=== PATIENT | male | born 1960 | race Hispanic/Latino ===

== ENCOUNTER 2018-11-06 10:09 | Emergency (ER) | payer OTHER ==
--- OUTSIDE RECORDS SUMMARY | 2018-11-06 10:13 | XMS REPORT ---
:1960 Author Organization eClinicalWorks Care Team Providers Name Role Phone Tae [facility] Provider Role Unavailable Allergies No Known Allergies Problems Problem Type Condition Code Onset Dates Condition Status Problem Hyperlipidemia, unspecified E78.5 Active hyperlipidemia type Assessment Hyperlipidemia, unspecified E78.5 Active hyperlipidemia type Problem Seasonal allergies J30.2 Active Assessment Seasonal allergies J30.2 Active Medications No Known Medications Results No Known Results Summary Purpose eClinicalWorks Submission
--- OUTSIDE RECORDS SUMMARY | 2018-11-06 10:13 | XMS REPORT ---
:1960 Author Organization eClinicalWorks Care Team Providers Name Role Phone Tae [facility] Provider Role Unavailable Allergies, Adverse Reactions, Alerts Substance Reaction Event Type N.K.D.A. Info Not Available Non Drug Allergy Problems Problem Type Condition Code Onset Dates Condition Status Assessment Weak urine stream R39.12 Active Assessment Need for Tdap vaccination Z23 Active Assessment Encounter for preventative adult Z00.00 Active health care examination Medications No Known Medications Results No Known Results Immunizations Vaccine Administration Date TDAP > 7 Years-Adacel December 04, 2017 Summary Purpose eClinicalWorks Submission
[2018-11-06 11:15] LABS: Absolute Lymphocytes (CBC) 0.7 K/uL (0.7-4.9); Absolute Neutrophil 5.4 K/uL (1.8-8.0); Basophils % 0.5 % (0-1.3); Eosinophils % 0.2 % (0-4.4); Hematocrit 54.6 % (39.6-49.0); Lymphocytes % 9.5 % (15.3-44.8); MPV 9.3 fL (7.6-11.3); Monocytes % 13.8 % (3.3-12.3); RBC Red Blood Cell Count 5.63 M/uL (4.33-5.43)
[2018-11-06] MEDS ORDERED: KETOROLAC 30 MG/ML INJ ONE (11:15)
[2018-11-06] MEDS ORDERED: DEXAMETHASONE 10 MG/ML VIAL ONE (11:15)
[2018-11-06 11:24] LABS: Potassium 4.3 mmol/L (3.5-5.1)
--- NOTE | 2018-11-06 12:10 | RAD REPORT ---
EXAM DESCRIPTION: CT - Soft Tissue Neck W/Contr CLINICAL HISTORY: submental swelling Pain and swelling. COMPARISON: No comparisons TECHNIQUE All CT scans are performed using dose optimization technique as appropriate and may includ e automated exposure control or mA/KV adjustment according to patient size. FINDINGS: Irregular rim enhancing fluid collection is seen in the submental space measuring 26 x 15 mm (T x AP). Surrounding fat is reticulated and several enlarged submental lymph nodes are present, l argest on the left measuring 8 mm. Findings are most compatible with submental abscess. A large peria pical abscess is present involving the left second mandibular molar with evidence of mild edematous c hange along the lingual surface of left mandible extending along the floor of the mouth. No laryngeal or pharyngeal mass suspected. Thyroid gland is normal in size. The upper lung perez are clear. IMPRESSION: Irregular submental abscess is suspected (26 x 15 mm). This may be odontogenic in origin given the large periapical abscess left mandibular second molar.
[2018-11-06] MEDS ORDERED: CLINDAMYCIN 900MG/D5W 900 MG/50 ML IVPB IV ONE (12:33)
--- NOTE | 2018-11-06 12:59 | ER ---
Nurse's Notes [facility] Name: Bo hO Age: 58 yrs Sex: Male : 1960 Arrival Date: 11/06/2018 Time: 10:11 Bed 7 Private MD: Kurtis Strong Diagnosis: Cutaneous abscess of neck;Periapical abscess with sinus Presentation: 11/06 10:15 Presenting complaint: Patient states: Swelling under his chin for the past week that aj1 has gotten worse over the past 2 days. He was seen at Dr. Strong's office today and was sent to the ER for evaluation. Reports trouble swallowing because of the swelling and pain. Denies fever. Transition of care: patient was not received from another setting of care. Onset of symptoms was October 2018. Risk Assessment: Do you want to hurt yourself or someone else? Patient reports no desire to harm self or others. Initial Sepsis Screen: Does the patient meet any 2 criteria? No. Patient's initial sepsis screen is negative. Does the patient have a suspected source of infection? No. Patient's initial sepsis screen is negative. Care prior to arrival: None. 10:15 Method Of Arrival: Ambulatory aj1 10:15 Acuity: JANELLE 3 aj1 Triage Assessment: 10:17 General: Appears in no apparent distress. comfortable, Behavior is calm, cooperative, aj1 appropriate for age. Pain: Complains of pain in submental area Pain currently is 3 out of 10 on a pain scale. Neuro: Level of Consciousness is awake, alert, obeys commands, Oriented to person, place, time, situation. Cardiovascular: Patient's skin is warm and dry. Respiratory: Airway is patent Respiratory effort is even, unlabored, Respiratory pattern is regular, symmetrical, Denies shortness of breath. Historical: - Allergies: 10:17 No Known Allergies; aj1 - Home Meds: 10:17 None [Active]; aj1 - PMHx: 10:17 None; aj1 - PSHx: 10:17 Hernia repair; aj1 - Immunization history:: Flu vaccine is not up to date. - Social history:: Smoking status: Patient/guardian denies using tobacco. - Ebola Screening: : Patient denies travel to an Ebola-affected area in the 21 days before illness onset. Screenin:50 Abuse screen: Denies threats or abuse. Denies injuries from another. Nutritional sv screening: No deficits noted. Tuberculosis screening: No symptoms or risk factors identified. Fall Risk None identified. Assessment: 10:55 General: Appears in no apparent distress. uncomfortable, slender, well groomed, well sv developed, Behavior is calm, cooperative, appropriate for age. Pain: Complains of pain in submental area Pain currently is 5 out of 10 on a pain scale. Neuro: Level of Consciousness is awake, alert, obeys commands, Oriented to person, place, time, situation, Moves all extremities. Full function Gait is steady. Respiratory: Airway is patent Respiratory effort is even, unlabored, Respiratory pattern is regular, symmetrical. EENT: Reports difficulty swallowing has been eating soft foods for about a week d/t to the swelling. Derm: Skin is pink, warm \T\ dry. Musculoskeletal: Range of motion: intact in all extremities. 13:18 Reassessment: Patient appears in no apparent distress at this time. Patient and/or sv family updated on plan of care and expected duration. Pain level reassessed. Patient is alert, oriented x 3, equal unlabored respirations, skin warm/dry/pink. Patient states symptoms have improved. 13:19 Reassessment: Report called to Cherri at [facility]. sv 13:50 Reassessment: Patient appears in no apparent distress at this time. Patient and/or sv family updated on plan of care and expected duration. Pain level reassessed. Patient is alert, oriented x 3, equal unlabored respirations, skin warm/dry/pink. Vital Signs: 10:17 BP 141 / 86; Pulse 79; Resp 18; Temp 98.6(O); Pulse Ox 99% on R/A; Weight 65.32 kg (R); aj1 Height 5 ft. 6 in. (167.64 cm) (R); 11:23 BP 141 / 82; Pulse 81; Resp 18; Pulse Ox 97% ; sv 13:18 BP 122 / 79; Pulse 85; Resp 16; Pulse Ox 98% ; sv 10:17 Body Mass Index 23.24 (65.32 kg, 167.64 cm) aj1 ED Course: 10:11 Patient arrived in ED. as 10:11 Kurtis Strong, is Private Physician. as 10:17 Triage completed. aj1 10:17 Arm band placed on. aj1 10:23 [facility] jr8 10:23 Sanchez Sotomayor MD is Attending Physician. jr8 10:24 Naty Lozoya, NANCIE is Primary Nurse. sv 10:50 Patient has correct armband on for positive identification. Placed in gown. Bed in low sv position. Call light in reach. Adult w/ patient. Pulse ox on. NIBP on. Door closed. Head of bed elevated. 10:55 Initial lab(s) drawn, by me, sent to lab. Inserted saline lock: 20 gauge in right sv antecubital area, using aseptic technique. Blood collected. Flushed right antecubital with 5 ml normal saline. 11:52 CT Soft Tissue Neck W/contr In Process Unspecified. EDMS 13:09 \T\1233 transfer initiated by Atul with Yuliana at the [facility]/ eb \T\1252 Dr. Saldaña the emergency room physician fermentation scientist for [facility] connected with Yousuf Alvarado for patient transfer consultation/ \T\1255 administrative approval given by Yuliana Kim from the [facility] transfer center/ patient has been accepted by to go to the ER at [facility]/ report to be called to [phone]. 13:50 No provider procedures requiring assistance completed. Patient transferred, IV remains sv in place. intact. Administered Medications: 11:07 Drug: Decadron - Dexamethasone 10 mg Route: IVP; Site: right antecubital; hb 11:23 Follow up: Response: No adverse reaction sv 11:08 Drug: TORadol - Ketorolac 15 mg Route: IVP; Site: right antecubital; hb 11:23 Follow up: Response: No adverse reaction sv 13:14 Drug: Clindamycin 900 mg Route: IVPB; Infused Over: 30 mins; Site: right antecubital; sv 13:50 Follow up: Response: No adverse reaction; IV Status: Infusion continued upon transfer sv Outcome: 12:58 ER care complete, transfer ordered by . jr8 13:50 Transferred by ground EMS to [facility], Transfer form completed. X-rays sent sv w/ patient. Note: Report given [facility] 13:50 Condition: stable 13:50 Instructed on the need for transfer. 13:51 Patient left the ED. sv Signatures: Dispatcher [employer] EDArti Myrick RN RN aj1 Naty Lozoya RN Sena Martines Josh, PA PA jr8 Helen Rajput RN RN Shivani Jean
--- NOTE | 2018-11-06 12:59 | EDPHYS ---
Physician Documentation [facility] Name: Bo Oh Age: 58 yrs Sex: Male : 1960 Arrival Date: 11/06/2018 Time: 10:11 Bed 7 Private MD: Tae Kurtis ED Physician Sanchez Sotomayor HPI: 11/06 10:55 This 58 yrs old Male presents to ER via Ambulatory with complaints of jr8 Difficulty Swallowing, Neck Swelling. 10:55 Onset: The symptoms/episode began/occurred gradually, 1 week(s) ago, and became worse. jr8 Severity of symptoms: At their worst the symptoms were moderate, in the emergency department the symptoms are unchanged. Modifying factors: The symptoms are alleviated by nothing, the symptoms are aggravated by swallowing, Patient's oral intake status: good. Associated signs and symptoms: The patient has no apparent associated signs or symptoms. The patient has not experienced similar symptoms in the past. The patient has been recently seen by a physician: the patient's primary care provider. Patient stated that about one week ago noticed irritating feeling and mild swelling to left side of jaw. Had migrated to chin region and is now increasing in size. Left jaw pain and swelling has dissipated since then. Saw PCP today and was sent to ED for further evaluation . Historical: - Allergies: 10:17 No Known Allergies; aj1 - Home Meds: 10:17 None [Active]; aj1 - PMHx: 10:17 None; aj1 - PSHx: 10:17 Hernia repair; aj1 - Immunization history:: Flu vaccine is not up to date. - Social history:: Smoking status: Patient/guardian denies using tobacco. - Ebola Screening: : Patient denies travel to an Ebola-affected area in the 21 days before illness onset. ROS: 10:55 Constitutional: Negative for fever, chills, and weight loss, Eyes: Negative for injury, jr8 pain, redness, and discharge, Cardiovascular: Negative for chest pain, palpitations, and edema, Respiratory: Negative for shortness of breath, cough, wheezing, and pleuritic chest pain, Abdomen/GI: Negative for abdominal pain, nausea, vomiting, diarrhea, and constipation, Back: Negative for injury and pain, MS/Extremity: Negative for injury and deformity, Skin: Negative for injury, rash, and discoloration, Neuro: Negative for headache, weakness, numbness, tingling, and seizure. 10:55 ENT: Positive for difficulty swallowing, sore throat, Negative for drainage from ear(s), ear pain, rhinorrhea, dental pain. 10:55 Neck: Positive for swelling, of the submental area. Exam: 10:55 Head/Face: Normocephalic, atraumatic. Eyes: Pupils equal round and reactive to light, jr8 extra-ocular motions intact. Lids and lashes normal. Conjunctiva and sclera are non-icteric and not injected. Cornea within normal limits. Periorbital areas with no swelling, redness, or edema. ENT: Nares patent. No nasal discharge, no septal abnormalities noted. Tympanic membranes are normal and external auditory canals are clear. Oropharynx with no redness, swelling, or masses, exudates, or evidence of obstruction, uvula midline. Mucous membranes moist. Chest/axilla: Normal chest wall appearance and motion. Nontender with no deformity. No lesions are appreciated. Cardiovascular: Regular rate and rhythm with a normal S1 and S2. No gallops, murmurs, or rubs. Normal PMI, no JVD. No pulse deficits. Respiratory: Lungs have equal breath sounds bilaterally, clear to auscultation and percussion. No rales, rhonchi or wheezes noted. No increased work of breathing, no retractions or nasal flaring. Abdomen/GI: Soft, non-tender, with normal bowel sounds. No distension or tympany. No guarding or rebound. No evidence of tenderness throughout. Back: No spinal tenderness. No costovertebral tenderness. Full range of motion. Skin: Warm, dry with normal turgor. Normal color with no rashes, no lesions, and no evidence of cellulitis. MS/ Extremity: Pulses equal, no cyanosis. Neurovascular intact. Full, normal range of motion. Neuro: Awake and alert, GCS 15, oriented to person, place, time, and situation. Cranial nerves II-XII grossly intact. Motor strength 5/5 in all extremities. Sensory grossly intact. Cerebellar exam normal. Normal gait. 10:55 Neck: External neck: swelling, of the submental area, tenderness, that is moderate, of the submental area, C-spine: appears grossly normal, Thyroid: appears normal, Trachea: is midline with no obvious abnormalities, ROM/movement: is normal, is supple, without pain, no range of motions limitations, no meningismus, no nuchal rigidity, negative Brudzinski's sign, negative Kernig's sign, Lymph nodes: no appreciated lymphadenopathy. Vital Signs: 10:17 BP 141 / 86; Pulse 79; Resp 18; Temp 98.6(O); Pulse Ox 99% on R/A; Weight 65.32 kg (R); aj1 Height 5 ft. 6 in. (167.64 cm) (R); 11:23 BP 141 / 82; Pulse 81; Resp 18; Pulse Ox 97% ; sv 13:18 BP 122 / 79; Pulse 85; Resp 16; Pulse Ox 98% ; sv 10:17 Body Mass Index 23.24 (65.32 kg, 167.64 cm) aj1 MDM: 10:23 Patient medically screened. jr8 12:35 Data reviewed: vital signs, nurses notes, lab test result(s), radiologic studies, CT jr8 scan. Data interpreted: Pulse oximetry: on room air is 97 %. Interpretation: normal. Counseling: I had a detailed discussion with the patient and/or guardian regarding: the historical points, exam findings, and any diagnostic results supporting the discharge/admit diagnosis, lab results, radiology results, the need to transfer to another facility, [facility] does not immediately have the required specialist. ED course: Discussed case with Dr. Denilson WITT. Concerned that the odontogenic abscess may be related source. At this time will defer to OMFS . 12:55 ED course: [facility] does not have OMFS. Called [facility] who accepted patient . 11/06 10:24 Order name: CBC with Diff; Complete Time: 11:23 11/06 10:24 Order name: Basic Metabolic Panel; Complete Time: 11:25 11/06 10:24 Order name: Creatinine for Radiology; Complete Time: 11:11/06 10:53 Order name: CT Soft Tissue Neck W/contr; Complete Time: 12:10 11/06 10:24 Order name: IV; Complete Time: 11:00 Administered Medications: 11:07 Drug: Decadron - Dexamethasone 10 mg Route: IVP; Site: right antecubital; hb 11:23 Follow up: Response: No adverse reaction sv 11:08 Drug: TORadol - Ketorolac 15 mg Route: IVP; Site: right antecubital; hb 11:23 Follow up: Response: No adverse reaction sv 13:14 Drug: Clindamycin 900 mg Route: IVPB; Infused Over: 30 mins; Site: right antecubital; sv 13:50 Follow up: Response: No adverse reaction; IV Status: Infusion continued upon transfer sv Disposition: 11/06/18 12:58 Transfer ordered to [facility]. Diagnosis are Cutaneous abscess of neck, Periapical abscess with sinus. - Reason for transfer: Higher level of care. - Accepting physician is Dr. Saldaña . - Condition is Stable. - Problem is new. - Symptoms have improved. Addendum: 11/11/2018 10:38 Co-signature as Attending Physician, Sanchez Sotomayor MD I agree with the assessment and k dr plan of care. Signatures: Dispatcher [employer] EDMS Arti Moore RN RN aj1 Naty Lozoya RN RN sv Sanchez Sotomayor MD MD [facility] Yousuf Patrick PA PA jr8 Helen Rajput RN RN Corrections: (The following items were deleted from the chart) 11/06 13:51 12:58 11/06/2018 12:58 Transfer ordered to [facility]. sv Diagnosis is Cutaneous abscess of neck; Periapical abscess with sinus. Reason for transfer: Higher level of care. Accepting physician is Dr. Saldaña . Condition is Stable. Problem is new. Symptoms have improved. jr8
== END 2018-11-06 13:51 | disposition short-term general hospital (02) ==
LOC: ER 10:09
DX: L02.11 Cutaneous abscess of neck (principal); K04.6 Periapical abscess with sinus
CPT/HCPCS: 36415; 70491; 80048; 85025; 96365; 96375; 99285; J1100; Q9967

== ENCOUNTER 2021-02-10 12:55 | Emergency (ER) | payer OTHER ==
--- OUTSIDE RECORDS SUMMARY | 2021-02-10 12:58 | XMS REPORT | Continuity of Care Document ---
:1960 Author Organization [facility] t Address [address] [place] [address] Care Team Providers Name Role Phone Reji Gimenez Attending Clinician Rohit Saldaña Attending Clinician Rohit Saldaña Admitting Clinician Problems Condition Condition Condition Status Onset Resolution Last Treating Co mments Source Name Details Category Date Date Treatment Clinician Date FOLLOW UP Diagnosis Active 2018-11-18 Memoria 11-10 10:01:00 l FOLLOW 00:00: Webster UP 00 Active 9 [facility] SUBMENTAL Diagnosis Active 2018-11-12 Memoria ABSESS 11-06 22:42:00 l FROM LEFT 00:00: Webster SECOND SUBMENTAL 00 MOLAR ABSESS FROM LEFT SECOND MOLAR Active 11/06/2018 [facility] CUTANEOUS Diagnosis Active 2018-11-12 Memoria ABSCESS OF 22:42:00 l FACE Casey CUTANEOUS ABSCESS OF FACE Active [facility] Allergies, Adverse Reactions, Alerts This patient has no known allergies or adverse reactions. Social History Social Habit Start Date Stop Date Quantity Comments Source Social History 2018-11-07 2018-11-07 Keila castellanos 03:33:49 03:33:49 Medications Ordered Filled Start Stop Current Ordering Indication Dosage Frequency Signature Comments Components Source Medication Medication Date Date Medication? Clinician (SIG) Name Name Metronidazo Yes 500 mg = 1 Memoria le 500 MG 4-26 tab, PO, l Oral Tablet 14:12: Q8H, X 10 H ermann [Flagyl] 00 day, # 30 tab, 0 Refill(s) ibuprofen Yes 600 mg = 1 Me moria 600 mg oral 4-26 tab, PO, l tablet 14:12: QID, # 20 Ab n 00 tab, 0 Refill(s) Acetaminoph Yes 650 mg = 2 Memoria en 325 MG 4-26 tab, PO, l Oral Tablet 14:12: Q6H, # 50 H ermann 00 tab, 0 Refill(s) Cephalexin Yes 500 mg = 1 M emoria 500 MG Oral 4-26 cap, PO, l Capsule 14:12: TID, X 10 Xochilt nn [Keflex] 00 day, # 30 cap, 0 Refill(s) chlorhexidi Yes 0.018 gm = Memoria ne 4-26 15 mL, PO, l gluconate 14:12: BID, swish He rmann 1.2 MG/ML 00 and spit; Mouthwash do not [Peridex] swallow, # 480 mL, 0 Refill(s) tramadol Yes 50 mg = 1 Clifton brian hydrochlori 4-26 tab, PO, l de 50 MG 14:12: Q4H, PRN Xochilt nn Oral Tablet 00 Pain Score 6-10, # 12 tab, 0 Refill(s) Famotidine No 10 mg, Memor ia 11-07 Route: PO, l 14:00: Drug form: Webster TAB, BID, Dosing Weight 65.909, kg, Start date: 11/07/18 9:00:00 CDT, Duration: 30 day, Stop date: 12/06/18 17:00:00 CDT sennosides, No Notes: Clifton brian PRISON -26 (Same as: l 14:00: Senokot) Lovenox No Notes: Memoria 4-26 (Same as: l 10:00: Lovenox) Tylenol No Notes: Do Memor ia 4- not exceed l 05:00: 4 gm/day. (Same as: Tylenol) sugammadex No Notes: Memor ia 4-26 (Same as: l 03:48: Bridion) Casey 00 Ibuprofen No Notes: Memori a 11-07 (Same as: l 02:00: Motrin) Webster 00 "Do Not Crush" Take with food. Flagyl No Notes: Memoria 11-07 (Same as: l 02:00: Flagyl) Casey 00 Avoid alcohol. ceFAZolin No Notes: Memori a 11-07 (Same As: l 02:00: Ancef, Webster 00 Kefzol) MEDICATION WASTE Product Size: 1000 mg Product Wasted: 0 mg Labetalol No 10 mg, Memori a 11-07 Route: l 01:49: IVP, Webster 00 Q5Min, Dosing Weight 65.909, kg, PRN Elevated BP, Start date: 11/06/18 20:49:00 CDT, Duration: 5 doses or times, Stop date: Limited # of times ketOROLAC 0 No IV, ONCE Clifton brian (ANES) 11-07 l 01:44: Webster 00 sugammadex No Route: IV, M emoria (ANES) 11-07 Drug form: l 01:44: SOLN, Casey 00 ONCE, Stop date: 11/06/18 20:44:00 CDT Morphine No Notes: Memoria 11-07 (Same l 01:22: as:MORPhin [place] 00 e Sulfate) Docusate No Notes: Memoria Sodium 50 11-07 (Same as: l MG Oral 01:19: Colace) Webster Capsule 00 (Do Not [Colace] Crush) Zofran No 4 mg, Memoria 11-07 Route: l 01:18: IVP, Drug Casey 00 form: INJ, Q8H, Dosing Weight 65.909, kg, PRN Nausea, Start date: 11/06/18 20:18:00 CDT, Duration: 30 day, Stop date: 12/06/18 20:17:00 CDT Oxycodone 0 No Notes: Memori a Hydrochlori 11-07 (Same as: l de 5 MG 01:13: Roxicodone Herm carolina Oral Tablet 00 ) Tramadol No Notes: Not Mem oria -26 to exceed l 01:13: 400mg/day. (Same As: Ultram) ondansetron No Route: IV, Memoria (ANES) 11-07 Drug form: l 01:13: INJ, ONCE, Stop date: 11/06/18 20:13:00 CDT fentaNYL No Route: IV, Mem oria (ANES) 11-07 Drug form: l 01:13: INJ, ONCE, Stop date: 11/06/18 20:13:00 CDT lidocaine No Route: IV, Me moria (ANES) 11-07 Drug form: l 01:13: INJ, ONCE, Stop date: 11/06/18 20:13:00 CDT rocuronium No Route: IV, M emoria (ANES) 11-07 Drug form: l 01:13: INJ, ONCE, Stop date: 11/06/18 20:13:00 CDT propofol No Route: IV, Mem oria (ANES) 11-07 Drug form: l 01:13: INJ, ONCE, Stop date: 11/06/18 20:13:00 CDT Benadryl No Notes: Memoria - (Same as: l 01:13: Benadryl) Lactated No 1,000 mL, Clifton brian Ringers IV 11-07 Rate: 100 l 1,000 mL 01:11: ml/hr, Infuse over: 10 hr, Route: IV, Dosing Weight 65.909 kg, Total Volume: 1,000, Start date: 11/06/18 20:11:00 CDT, Duration: 30 day, Stop date: 12/06/18 20:10:00 CDT, 1.76, m2 Saline No Notes: Memoria Flush 0.9% 11-07 (Same as: l 01:11: BD Webster 00 Posiflush) Ondansetron No Notes: Clifton brian -26 (Same as: l 01:11: Zofran) MEDICATION WASTE Product Size: 4 mg Product Wasted: 0 mg Famotidine 2018-0 No Notes: Memor ia 11-07 (Same as: l 01:11: Pepcid) Casey 00 Can be dilute in 5-10cc NS IVP: Slow IV push over at least 2 minutes. midazolam 2018-0 No Route: IV, Me moria (ANES) 11-07 Drug form: l 01:08: SOLN, Casey 00 ONCE, Stop date: 11/06/18 20:08:00 CDT Hydromorpho 2018-0 No 0.5 mg, Mem oria ne 11-07 Route: l 00:50: IVP, Webster 00 Q5Min, Dosing Weight 65.909, kg, PRN Pain Score 7-10, Start date: 11/06/18 19:50:00 CDT, Duration: 4 doses or times, Stop date: Limited # of times Naloxone 2018-0 No 0.4 mg, Memori a 11-07 Route: l 00:50: IVP, Webster 00 Q2MIN, Dosing Weight 65.909, kg, PRN Narcotic Reversal, Start date: 11/06/18 19:50:00 CDT, Duration: 8 doses or times, Stop date: Limited # of times Flumazenil 2018-0 No 0.2 mg, Clifton brian 11-07 Route: l 00:50: IVP, PRN, Dosing Weight 65.909, kg, PRN Benzodiaze pine Reversal, Initial dose, Start date: 11/06/18 19:50:00 CDT, Duration: 30 day, Stop date: 12/06/18 19:49:00 CDT Ondansetron 2018-0 No 4 mg, Memor ia 11-07 Route: l 00:50: IVP, ONCE, Dosing Weight 65.909, kg, PRN Nausea & Vomiting, Start date: 11/06/18 19:50:00 CDT Acetaminoph 2019-0 No 1,000 mg, M emoria en 11-07 Route: PO, l 00:50: Drug form: Webster 00 TAB, ONCE, Dosing Weight 65.909, kg, PRN Pain Score 1-3, Start date: 11/06/18 19:50:00 CDT Oxycodone 2018-0 No 5 mg, Memoria 11-07 Route: PO, l 00:50: Drug form: Casey 00 TAB, Q4H, Dosing Weight 65.909, kg, PRN Pain Score 4-6, Start date: 11/06/18 19:50:00 CDT, Duration: 30 day, Stop date: 12/06/18 19:49:00 CDT Lactated No Route: IV, Mem oria Ringers 11-07 Total l Injection 00:21: Volume: Xochilt nn IV (ANES) 00 1,000, 1000 mL Start date: 11/06/18 19:21:00 CDT, Stop date: 11/06/18 20:21:00 CDT Immunizations Ordered Filled Immunization Date Status Comments Sour e Immunization Name Name TDAP > 7 TDAP > 7 2017-12-[address] [facility] - Years-Adacel Years-Adacel 00:00:00 [facility] Out[facility] Vital Signs Vital Name Observation Time Observation Value Comments Source Systolic (mm Hg) 2018-11-18 20:38:00 [place] rial [place] Diastolic (mm Hg) 2018-11-18 20:38:00 [facility] orial Casey Respitory Rate 2018-11-18 [facility]:38[facility] [place] Heart Rate 2018-11-18 20:38:00 [facility] [place] Weight 2018-11-18 20:38:00 [facility] [place] BMI Calculated 2018-11-18 20:38:00 [facility] [place] Height 2018-11-18 20:38:00 167.64 cm [facility] [place] Heart Rate 2018-11-07 19:52:00 [facility] Oral (F) 2018-11-07 19:52:00 97.7 F [facility] [place] Systolic (mm Hg) 2018-11-07 19:52:00 [place] rial Casey Diastolic (mm Hg) 2018-11-07 19:52:00 Mem orial [place] Respitory Rate 2018-11-07 19:52:00 Memori al [place] Respitory Rate 2018-11-07 16:23:00 Memori al [place] Heart Rate 2018-11-07 16:23:00 [facility] [place] Systolic (mm Hg) 2018-11-07 16:23:00 Clifton rial [place] Diastolic (mm Hg) 2018-11-07 16:23:00 Mem orial [place] Temperature Oral (F) 2018-11-07 16:23:00 98 F [facility] [place] Systolic (mm Hg) 2018-11-07 12:45:00 Clifton hernandez Casey Diastolic (mm Hg) 2018-11-07 12:45:00 Mem orial [place] Respitory Rate 2018-11-07 12:45:00 Memori al [place] Heart Rate 2018-11-07 12:45:00 [facility] [place] Temperature Oral (F) 2018-11-07 12:45:00 97.7 F [facility] [place] Weight 2018-11-07 03:26:00 [facility] [place] Height 2018-11-07 03:26:00 167.64 cm [facility] [place] BMI Calculated 2018-11-07 03:26:00 Memori al [place] Height 2018-11-06 19:45:00 167.64 cm [facility] [place] BMI Calculated 2018-11-06 19:45:00 Memori al [place] Weight 2018-11-06 19:45:00 [facility] Procedures Procedure Date / Time Performed Performing Clinician [facility] e Hernia repair [facility] Encounters Start End Encounter Admission Attending Care Care Encounter Source Date/Time Date/Time Type Type Clinicians Facility Department ID 2020-07-20 2020-07-20 Outpatient [facility] [id number] [facility] Out[facility] Clin[facility] 2020-01-22 2020-01-22 [facility] [id number] [address] 10:00:00 10:00:00 [facility] Medicine Medicine Outpati ent Clinics 2019-12-31 2019-12-31 [facility] [id number] 08:30:00 08:30:00 [facility] Medicine Medicine Outpati ent Clinics 2019-04-10 2019-04-10 Outpatient MOISES Gimenez [id number] 10:36:00 23:59:00 Rohan Mendoza 2019-03-18 2019-03-18 [facility] [id number] 14:00:00 14:00:00 [place] Medicine Outpati ent Clinics 2019-02-05 2019-02-05 [facility] [id number] 08:30:00 08:30:00 [place] [employer] [address] [facility] Medicine Outpati ent Clinics 2018-12-29 2018-12-29 [facility] [id number] 08:15:00 08:15:00 t [place] [employer] [address] [facility] Medicine Outpati ent Clinics 2018-11-18 2018-12-17 Outpatient Piotr [facility] [id number] 09:52:00 23:59:00 Florencio 00 Mtanios 2018-11-18 2018-11-18 Outpatient [facility] [id number] [facility] 09:52:00 09:52:00 2018-11-06 2018-11-07 Outpatient Piotr [facility] [id number] 14:40:00 18:33:00 [facility] 2018-11-06 2018-11-06 [facility] [id number] 09[facility]30:00 09:30:00 t [employer] [facility] Medicine Outpati ent Clinics 2017-12-26 2017-12-26 [facility] [id number] 14:00:00 14:00:00 [place] [employer] [address] [facility] Medicine Outpati ent Clinics 2017-12-04 2017-12-04 [facility] [id number] 11:15:00 11:15:00 [place] [employer] [address] [facility] Medicine Outpati ent Clinics Results Test Description Test Time Test Comments Results Result Comments Source CHEM PANEL 2018-11-07 3.2 [facility] Xochilt nn 10:25:00 CHEM PANEL 2018-11-07 18 [facility] Xochilt nn 10:25:00 CHEM PANEL 2018-11-07 0.4 [facility] Xochilt nn 10:25:00 CHEM PANEL 2018-11-07 17 [facility] X[facility]ilt nn 10:25:00 CHEM PANEL 2018-11-07 1.3 [facility] Xochilt nn 10:25:00 CHEM PANEL 2018-11-07 57 [facility] X[facility]ilt nn 10:25:00 CHEM PANEL 2018-11-07 0.9 [facility] Xochilt nn 10:25:00 CHEM PANEL 2018-11-07 10:25:00 Test Item Value Reference Range Interpretation Comme nts A/G Ratio (test code = A/G Ratio) 0.9 1 0.7-1.6 [facility] [id number] 10:25:003.5[facility]annCHEM PANEL 2018-11-07 10:25:006.7[facility] YxgpcdeICRSERBSVTLG7149-82-01 10:25:0010.2 Memorial XvimbkjSSDUFGNRXJXO1373-50-78 10:25:0085[facility] HermannELECTROLYTES 2018-11-07 10:25:54299Ermxyhae FgpkichVZIIYJDVASIG1488-37-52 10:25:0092[facility] ExcgxmvLKBJEGSWHHEP8807-74-46 10:25:0018[facility] ZqvughxTDMGCAPUGMBZ6454-25-46 10:25:000.98[facility] AvmjabjTRVVCHEZWTKJ7482-73-52 10:25:008.9[facility] XEDUZKPWXIID1618-51-74 10:25:004.2[facility] GriaeaoCRARFHKYMJYB0260-09-46 10:25:42430Kubepfvg EsgojcxEGRCXVKSKHBU0078-54-71 10:25:0028[facility] TAANIAOBRC5717-87-52 10:25:009.3[facility] DdfekmtSNITMYSWHO2697-48-89 10:25:00 77.0[facility] VyrxthzMBNJEHTOPG3403-03-46 10:25:006.5[facility] HermannHEMATOLOGY 2018-11-07 10:25:001.1[facility] AjxpnzdIYQGRYDPMK5772-20-19 10:25:000.8[facility] DnatzuhDDQLSPKIVB4488-04-60 10:25:000.3[facility] LupkbxhNUAUGJZJWJ1736-93-60 10:25:0013.4[facility] PwwuopyUIKMJUSUXO5863-72-87 10:25:0096.2[facility] SXRCLMNAHP0354-74-38 10:25:0013.1[facility] WyveymkHAGEFTFOAX1384-70-93 10:25:00 35.2[facility] HauwbetCQFTPCRZVI7891-69-36 10:25:00 Test Item Value Reference Range Interpretation Comments MCH (test code = MCH) 33.8 pg 27.0-31.0 [facility] GrdhdmiYYSSJJROEE7106-68-65 10:25:009.5[facility] HermannHEMATOLOGY 2018-11-07 10:25:35004Yvlfhsym XmdypwdQBSNZUSKPH7269-93-97 10:25:0046.5[facility] SugykggUSZNOFAHZN6930-40-80 10:25:0016.4[facility] CqgcwilPEXQMADMDB7103-29-02 10:25:008.5[facility] XisglbrYWEBYTLWAT4829-16-15 10:25:004.83[facility] [place] BVOZSFOGWW4767-10-98 21:26:00Negative *NA*(11/06/18 4:26 PM)[facility] PGMWXWL1194-22-90 21:15:00Negative (11/06/18 4:15 PM)[facility]annCHEM ZOVHG0884-16-31 21:00:94132Rmoajnae HermannCHEM XNNGV5287-17-40 21:00:0013 [facility]annCHEM BRRVS3188-31-34 21:00:10781Qybpxzpo HermannCHEM PANEL 2018-11-06 21:00:001.08[facility]annCHEM GRWFJ7344-97-26 21:00:004.6[facility]annCHEM URMBE1828-94-85 21:00:0026[facility] HermannCHEM XNEDZ3803-74-17 21:00:0099[facility] HermannCHEM AOHSJ9592-87-35 21:00:009.3[facility] HermannCHEM XYXPB7996-54-17 21:00:0014.6[facility]orial GkzejbcOWHGLIDZVN0623-33-51 21:00:000.1 Memorial IvvdgqpIMTQKWUHTV6670-74-77 21:00:002.4[facility] HermannHEMATOLOGY 2018-11-06 21:00:0093.3[facility]orial XkzupmfXLENDLOOQY7977-88-19 21:00:004.1[facility] SugsflyQKMQMQKMCM6105-19-46 21:00:006.5[facility]orial IqsvtrgFHCBSWGAJK8370-21-73 21:00:000.1[facility] SjpiomqLUOAZQQHOM1389-88-84 21:00:000.2[facility] [place] XEXBDCFYGG7709-95-23 21:00:000.3[facility] WwmuciaNTINMUSNZY2981-44-76 21:00:00 Test Item Value Reference Range Interpretation Comments INR (test code = INR) 0.94 1 0.85-1.17 [facility] QpklinpYRVVIFEJDQ7845-57-87 21:00:00 Test Item Value Reference Range Interpretation Comments PT (test code = PT) 12.4 s 12.0-14.7 Memorial BvxyvkeJFETTAEQWA0670-99-60 21:00:00 Test Item Value Reference Range Interpretation Comments PTT (test code = PTT) 31.1 s 22.9-35.8 Memorial GwvvngqTDJSLWMCLS2907-97-60 21:00:009.6[facility]annHEMATOLOGY 2018-11-06 21:00:0018.1[facility]orial FvkqbsaYJUQTDQMLR0962-45-91 21:00:005.37[facility] MzcpjsyXYBZBCTXFU3643-02-28 21:00:00 Test Item Value Reference Range Interpretation Comments MCH (test code = MCH) 33.6 pg 27.0-31.0 [facility] ZvaofecUXHYQYDPHS3060-12-03 21:00:007.0[facility] HermannHEMATOLOGY 2018-11-06 21:00:47758Cvrpbqqs RqiogrdKXRYLZFYAK4301-17-21 21:00:0034.9[facility]orial HtflsxkQMVFZRQNWW1796-06-90 21:00:0012.8[facility] SgvfbutGYJZZMJYKU1426-16-01 21:00:0051.7[facility] MizlctwFLDAIAAONF4053-95-44 21:00:0096.3[facility] CHEM IFPPQ2766-83-62 21:00:0076[facility]
[2021-02-10 14:49] LABS: Urine Blood Negative (Negative); Urine Glucose Negative (Negative); Urine Protein Negative (Negative); Urine Specific Gravity 1.025 (1.005-1.030)
[2021-02-10] MEDS ORDERED: ACETAMINOPHEN 500 MG TAB ONE (14:54)
--- NOTE | 2021-02-10 15:55 | RAD REPORT ---
EXAM DESCRIPTION: CT - Spine Lumbar Wo Con - 02/10/2021 3:19 pm CLINICAL HISTORY: PAIN COMPARISON: None. TECHNIQUE: Thin section axial imaging of the lumbar spine was performed. Sagittal and coronal recon struction images were generated and reviewed. All CT scans are performed using dose optimization technique as appropriate and may include automated exposure control or mA/KV adjustment according to patient size. FINDINGS: Lumbar vertebrae are normal in height and alignment. No fracture or acute bone finding tasha ntifiable. Anterior endplate spurring seen from the superior endplates of L3 and L4. No pars defects identified. Facet joint degenerative changes are present mild in the mid lumbar spine and moderately severe on the left at L5-S1. SI joint degenerative changes are present with bridging ossification ant erior superior margin on the left. No paraspinal mass or hematoma seen. No herniation of disc material seen. Mild disc bulge changes are present at L2-3, L3-4 and L4-5. No c entral spinal stenosis or significant foraminal encroachment. IMPRESSION: CT lumbar spine examination shows mild disc bulge without herniation at multiple levels. No canal or foramen stenoses. Moderately severe facet joint degenerative change noted on the left at L5-S1.
[2021-02-10 15:57] LABS: Urine Bacteria <20 /HPF (NONE SEEN); Urine RBC <5 /HPF (NONE SEEN)
[2021-02-10] MEDS ORDERED: CYCLOBENZAPRINE 10 MG TAB ONE (16:05)
[2021-02-10] MEDS ORDERED: LIDOCAINE 4% PATCH ONE (16:06)
[2021-02-10] MEDS ORDERED: KETOROLAC 30 MG/ML INJ ONE (16:06)
--- NOTE | 2021-02-10 16:17 | EDPHYS ---
Physician Documentation [facility] Name: Bo Oh Age: 60 yrs Sex: Male : 1960 Arrival Date: 02/10/2021 Time: 12:58 Bed DIS2 Private MD: Kurtis Strong ED Physician Don Padilla HPI: 02/10 14:30 This 60 yrs old Male presents to ER via Ambulatory with complaints of Back cp Pain. 14:30 The patient presents with pain that is acute. The symptoms are located in the left low cp back. 14:30 Onset: The symptoms/episode began/occurred 3 week(s) ago, and became worse 3 day(s) cp ago. The pain does not radiate. 14:30 Associated signs and symptoms: Pertinent negatives: abdominal pain, constipation, cp dysuria, fever, incontinence, numbness, tingling, urinary retention, weakness. The problem was sustained Patient reports pain in lower left back started about 3 weeks ago after performing some work at home. Patient reports pain seemed to improved but returned 3-4 days ago after bending over. Historical: - Allergies: 13:26 No Known Allergies; tw2 - Home Meds: 13:26 None [Active]; tw2 - PMHx: 13:26 None; tw2 - PSHx: 13:26 hernia; tooth abscess; tw2 - Immunization history:: Client reports receiving the 2nd dose of the Covid vaccine. - Social history:: Smoking status: . ROS: 14:35 Constitutional: Negative for body aches, chills, fever, poor PO intake. cp 14:35 Eyes: Negative for injury, pain, redness, and discharge. cp 14:35 ENT: Negative for ear pain, sore throat, difficulty swallowing, difficulty handling secretions. 14:35 Cardiovascular: Negative for chest pain, edema, palpitations. 14:35 Respiratory: Negative for cough, shortness of breath, wheezing. 14:35 Abdomen/GI: Negative for abdominal pain, nausea, vomiting, and diarrhea, constipation, black/tarry stool, rectal bleeding, bowel incontinence. 14:35 Back: Positive for pain at rest, pain with movement, of the left low back. 14:35 : Negative for urinary symptoms, difficulty urinating, bladder incontinence, testicular pain 14:35 Skin: Negative for rash. 14:35 Neuro: Negative for altered mental status, headache, numbness, tingling, weakness. 14:35 All other systems are negative. Exam: 14:40 Constitutional: The patient appears in no acute distress, alert, awake, non-toxic, well cp developed, well nourished. 14:40 Head/Face: Normocephalic, atraumatic. cp 14:40 Eyes: Periorbital structures: appear normal, Conjunctiva: normal, no exudate, no injection, Sclera: no appreciated abnormality, Lids and lashes: appear normal, bilaterally. 14:40 ENT: External ear(s): are unremarkable, Nose: is normal, Posterior pharynx: Airway: no evidence of obstruction, patent. 14:40 Neck: ROM/movement: is normal, is supple, without pain, no range of motions limitations. 14:40 Chest/axilla: Inspection: normal. 14:40 Cardiovascular: Rate: normal, Rhythm: regular. 14:40 Respiratory: the patient does not display signs of respiratory distress, Respirations: normal, no use of accessory muscles, no retractions. 14:40 Abdomen/GI: Inspection: abdomen appears normal, Palpation: abdomen is soft and non-tender, in all quadrants. 14:40 Back: pain, that is moderate, of the left low back, ROM is painful, with all movement, vertebral tenderness, is not appreciated. 14:40 Skin: no rash present. 14:40 Neuro: Motor: moves all fours, strength is normal, Sensation: is normal, Gait: is steady, at a normal pace, without difficulty. Vital Signs: 13:23 BP 159 / 96; Pulse 75; Resp 18; Temp 98.3(TE); Pulse Ox 99% on R/A; Weight 68.04 kg; tw2 Height 5 ft. 6 in. (167.64 cm) (R); Pain 4/10; 13:23 Body Mass Index 24.21 (68.04 kg, 167.64 cm) tw2 MDM: 14:30 Differential diagnosis: Cholelithiasis chronic back pain, Pyelonephritis spinal injury, cp Ureterolithiasis vertebral fracture, spinal stenosis, cauda equina. 15:39 Patient medically screened. cp 16:15 Data reviewed: vital signs, nurses notes, lab test result(s), radiologic studies, CT cp scan. 16:15 Counseling: I had a detailed discussion with the patient and/or guardian regarding: the cp historical points, exam findings, and any diagnostic results supporting the discharge/admit diagnosis, lab results, radiology results, the need for outpatient follow up, a family practitioner, to return to the emergency department if symptoms worsen or persist or if there are any questions or concerns that arise at home. Response to treatment: the patient's symptoms have mildly improved after treatment, VSS. Pain improved. CT lumbar spine negative for acute findings. Will discharge to home for continued monitoring. 02/10 14:11 Order name: Urine Microscopic Only; Complete Time: 16:13 cp 02/10 14:49 Order name: Urine Dipstick-Ancillary EDMS 02/10 14:11 Order name: CT Lumbar Spine Wo Con; Complete Time: 16:13 cp 02/10 14:11 Order name: Urine Dipstick-Ancillary (obtain specimen); Complete Time: 15:05 cp Administered Medications: 14:47 Drug: Tylenol 1000 mg Route: PO; iw 15:00 Follow up: Response: No adverse reaction iw 15:40 CANCELLED (Physician Discretion): Ketorolac 60 mg IM once cp 15:50 Drug: Flexeril (cyclobenzaprine) 10 mg Route: PO; tr6 16:00 Follow up: Response: No adverse reaction iw 15:50 Drug: Lidoderm Patch 5 % (700 mg/patch) 1 patches Route: Topical; Site: affected area; tr6 15:50 Drug: Ketorolac 30 mg Route: IM; Site: left deltoid; tr6 16:00 Follow up: Response: No adverse reaction iw Disposition Summary: 02/10/21 16:16 Discharge Ordered Location: Home cp Problem: new cp Symptoms: have improved cp Condition: Stable cp Diagnosis - Low back pain cp Followup: cp - With: Kurtis Strong, DO - When: 2 - 3 days - Reason: Worsening of condition Discharge Instructions: - Discharge Summary Sheet cp - Acute Back Pain, Adult cp - Heat Therapy cp - Back Exercises cp Forms: - Medication Reconciliation Form cp - Thank You Letter cp - Antibiotic Education cp - Prescription Opioid Use cp Prescriptions: - Cyclobenzaprine 10 mg Oral Tablet - take 1 tablet by ORAL route every 8 hours As needed; 30 tablet; Refills: 0, cp Product Selection Permitted - Lidoderm 5 % Topical adhesive patch,medicated - apply 1 patch by TOPICAL route once daily; 1 box; Refills: 0, Product Selection cp Permitted - Medrol (Srikanth) 4 mg Oral Tablets, Dose Pack - take 1 tablet by ORAL route as directed - follow package instructions; 1 cp packet; Refills: 0, Product Selection Permitted Addendum: 02/13/2021 06:46 Co-signature as Attending Physician, Don Padilla MD I agree with the assessment and c calles plan of care. Signatures: Dispatcher [employer] EDDon Lopez MD MD cha Williams, Irene, RN RN iw Don Sutherland PA PA cp Poornima Waldron RN RN tw2 Eduarda Navarrete RN RN tr6 Corrections: (The following items were deleted from the chart) 02/10 15:40 15:40 Ketorolac 60 mg IM once ordered. cp cp
--- NOTE | 2021-02-10 16:17 | ER ---
Nurse's Notes [facility] Name: Bo Oh Age: 60 yrs Sex: Male : 1960 Arrival Date: 02/10/2021 Time: 12:58 Bed DIS2 Private MD: Kurtis Strong Diagnosis: Low back pain Presentation: 02/10 13:23 Chief complaint: Patient states: i am having issues with my lower back. i tweaked it 3 tw2 weeks ago. then about 3 or 4 days ago i bent down and it got me. more on the left side of my back. but it has gotten worse and hurting across to the right but i think the issue is my left middle. Coronavirus screen: At this time, the client does not indicate any symptoms associated with coronavirus-19. Ebola Screen: Patient denies travel to an Ebola-affected area in the 21 days before illness onset. Initial Sepsis Screen: Does the patient meet any 2 criteria? No. Patient's initial sepsis screen is negative. Does the patient have a suspected source of infection? No. Patient's initial sepsis screen is negative. Risk Assessment: Do you want to hurt yourself or someone else? Patient reports no desire to harm self or others. Onset of symptoms was February 10, 2021. 13:23 Method Of Arrival: Ambulatory tw2 13:23 Acuity: JANELLE 4 tw2 Triage Assessment: 13:26 General: Appears in no apparent distress. uncomfortable, slender, well groomed, tw2 Behavior is calm, cooperative, appropriate for age. Pain: Complains of pain in back. Musculoskeletal: Range of motion: intact in all extremities. Historical: - Allergies: 13:26 No Known Allergies; tw2 - Home Meds: 13:26 None [Active]; tw2 - PMHx: 13:26 None; tw2 - PSHx: 13:26 hernia; tooth abscess; tw2 - Immunization history:: Client reports receiving the 2nd dose of the Covid vaccine. - Social history:: Smoking status: . Screenin:40 Abuse screen: Denies threats or abuse. Denies injuries from another. Nutritional tr6 screening: No deficits noted. Tuberculosis screening: No symptoms or risk factors identified. Fall Risk None identified. Assessment: 15:39 General: Appears uncomfortable, Behavior is calm, cooperative, appropriate for age. tr6 Pain: Complains of pain in back. Neuro: No deficits noted. Cardiovascular: No deficits noted. Respiratory: No deficits noted. GI: No deficits noted. : No deficits noted. EENT: No deficits noted. Derm: No deficits noted. Musculoskeletal: Reports limited movement due to back pain. 16:15 Reassessment: MARA aSms at bedside to discuss results and POC with pt. tr6 Vital Signs: 13:23 BP 159 / 96; Pulse 75; Resp 18; Temp 98.3(TE); Pulse Ox 99% on R/A; Weight 68.04 kg; tw2 Height 5 ft. 6 in. (167.64 cm) (R); Pain 4/10; 13:23 Body Mass Index 24.21 (68.04 kg, 167.64 cm) tw2 ED Course: 12:58 Patient arrived in ED. mr 12:58 Kurtis Strong DO is Private Physician. mr 13:25 Triage completed. tw2 13:27 Arm band placed on. tw2 14:10 Don Sutherland PA is PHCP. cp 14:47 Susie Ni, RN is Primary Nurse. iw 15:19 CT Lumbar Spine Wo Con In Process Unspecified. EDMS 15:40 Patient has correct armband on for positive identification. tr6 15:40 No provider procedures requiring assistance completed. tr6 16:16 Kurtis Strong DO is Referral Physician. cp 16:17 Don Padilla MD is Attending Physician. cp 16:23 Patient did not have IV access during this emergency room visit. tr6 Administered Medications: 14:47 Drug: Tylenol 1000 mg Route: PO; iw 15:00 Follow up: Response: No adverse reaction iw 15:40 CANCELLED (Physician Discretion): Ketorolac 60 mg IM once cp 15:50 Drug: Flexeril (cyclobenzaprine) 10 mg Route: PO; tr6 16:00 Follow up: Response: No adverse reaction iw 15:50 Drug: Lidoderm Patch 5 % (700 mg/patch) 1 patches Route: Topical; Site: affected area; tr6 15:50 Drug: Ketorolac 30 mg Route: IM; Site: left deltoid; tr6 16:00 Follow up: Response: No adverse reaction iw Outcome: 16:16 Discharge ordered by . cp 16:23 Discharged to home ambulatory. tr6 16:23 Condition: stable 16:23 Discharge instructions given to patient, family, Instructed on discharge instructions, follow up and referral plans. medication usage, Demonstrated understanding of instructions, follow-up care, medications, Prescriptions given X 3. 16:38 Patient left the ED. tr6 Signatures: Dispatcher [employer] EDNC TyronMaryan mr Susie Ni RN RN iw Don Sutherland PA PA cp Wise, Tara, RN RN tw2 Eduarda Navarrete RN RN tr6
[2021-02-10 16:43] VITALS: BP 159/96; TEMP 98.3; O2SAT 99
== END 2021-02-10 16:38 | disposition home or self-care (01) ==
LOC: ER 12:55
DX: M54.5 Low back pain (principal)
CPT/HCPCS: 72131; 81003; 81015; 96372; 99283